=== PATIENT | female | born 1985 | race Caucasian/White ===

== ENCOUNTER 2020-03-11 10:09 | Emergency (ER) | payer OTHER, SELFPAY ==
--- NOTE | ~2020-03-11 | XR_ITS ---
XR foot LT min 3V 03/11/2020 10:31 INDICATION: Left ankle pain after injury PROCEDURE: 4 views left ankle COMPARISON: No prior studies for comparison. FINDINGS: Fracture, dislocation or subluxation is not identified. There is a degenerative calcaneal s pur. There is a probable old healed navicular fracture. The soft tissues appear within normal limits. No foreign bodies are identified. IMPRESSION: 1: NO ACUTE BONE OR JOINT ABNORMALITY IDENTIFIED. Reviewed, dictated and finalized at location B.
[2020-03-11 10:20] VITALS: BP 107/78; PULSE 100; RESP 16; TEMP 36.2; O2SAT 98
--- NOTE | 2020-03-11 10:46 | ED.LOWEXIN ---
HPI - Extremity Injury (Lower) General Chief Complaint: Extremity Injury, Lower Stated Complaint: Ankle injury Time Seen by Provider: 03/11/20 10:32 Source: patient and RN notes reviewed Mode of arrival: ambulatory Limitations: no limitations History of Present Illness HPI Narrative: Patient presents today complaining of injury to her left ankle. Reports she missed several stairs while going into her basement yesterday, twisting her ankle and falling. She denies numbness or tingling in the leg or foot. Pain increases with weightbearing. Currently at rest, she currently rates her pain 4/10. She has tried ice and Aleve without much relief. Patient works at [employer] and has many stairs to climb at work. MD complaint: ankle injury Related Data Home Medications Medication Instructions Recorded Confirmed buprenorphine-naloxone [Suboxone] 1 film SUBLINGUAL DAILY 03/11/20 03/11/20 Allergies Allergy/AdvReac Type Severity Reaction Status Date / Time Penicillins Allergy Unknown Unknown Verified 03/11/20 10:15 Review of Systems Review of Systems: Narrative: CONSTITUTIONAL: Denies body aches, fever, chills, or sweats. EYES: Denies visual changes, redness, or discharge. ENT: Denies rhinorrhea, congestion, sore throat, or otalgia. CARDIOVASCULAR: Denies chest pain, palpitations, or edema. RESPIRATORY: Denies cough or dyspnea. GASTROINTESTINAL: Denies abdominal pain, nausea, vomiting, or diarrhea. GENITOURINARY: Denies dysuria or hematuria. SKIN: Denies rash, itching, or wounds. MUSCULOSKELETAL: Denies back pain, or myalgia. + Left ankle injury NEUROLOGIC: Denies headache, numbness, tingling, or weakness. PSYCH: Denies depression or anxiety. [facility] Past Medical History Medical History (Updated 03/11/20 @ 10:50 by Jillian Chapa, [facility], ) Substance abuse Social History Social History Gender identity (if verbalized by the patient): Female Comments At time of signature, I have reviewed and agree with nursing past medical, surgical, social and family history unless otherwise noted. Please see nursing chart for further information. There is no relevant family history pertinent to the presenting complaint Exam Narrative: Exam Narrative: GENERAL: Well-appearing, well-nourished, and in no acute distress. HEAD: Normocephalic, atraumatic. EYES: EOMI. No redness or drainage. Conjunctivae normal. ENT: Mucous membranes pink and moist. NECK: Normal AROM. CHEST: No respiratory distress. EXTREMITIES: Left ankle: Mild edema to the lateral malleolus with mild ecchymosis. Soft tissue tenderness laterally, but no bony tenderness to the lateral malleolus. No bony tenderness to the medial malleolus. Soft tissue tenderness to the anterior ankle. No tenderness to the foot. Distal sensation intact. Capillary refill normal. Pedal pulse normal. Full AROM of the toes and ankle. Pain increases with range of motion of the ankle. SKIN: Warm, dry, no rash. Capillary refill normal. Normal skin turgor. NEURO: No focal deficits. Alert and oriented x3. Gait steady. PSYCH: Normal affect. No signs of depression or anxiety. Course Vital Signs Vital signs: Vital Signs Temperature 97.1 F L 03/11/20 10:20 Pulse Rate 100 03/11/20 10:20 Respiratory Rate 16 03/11/20 10:20 Blood Pressure 107/78 03/11/20 10:20 Pulse Oximetry 98 03/11/20 10:20 Temperature 97.1 F L 03/11/20 10:20 Pulse Rate 100 03/11/20 10:20 Respiratory Rate 16 03/11/20 10:20 Blood Pressure 107/78 03/11/20 10:20 Pulse Oximetry 98 03/11/20 10:20 Reviewed MDM - Extremity Injury (Lower) Differential Diagnosis Differential diagnosis: Likely ankle sprain and strain and ankle fracture Imaging Data Radiologist's impression: ITS Impressions Foot X-Ray 03/11/20 10:35 IMPRESSION: 1: NO ACUTE BONE OR JOINT ABNORMALITY IDENTIFIED. Critical Care Time Critical Care Time Critical Care Time: No Discharge Plan
== END 2020-03-11 10:54 | disposition home or self-care (01) ==
PROVIDERS: Emergency Provider Nurse Practitioner
DX: S93.402A Sprain of unspecified ligament of left ankle, initial encounter (principal); W10.9XXA Fall (on) (from) unspecified stairs and steps, initial encounter; J45.909 Unspecified asthma, uncomplicated
CPT/HCPCS: 73630; 99213; G0463

== ENCOUNTER 2021-10-23 15:35 | Emergency (ER) | payer OTHER, SELFPAY ==
[2021-10-23 15:46] VITALS: BP 124/82; PULSE 91; RESP 20; TEMP 36.7; O2SAT 99
--- NOTE | 2021-10-23 16:01 | ED.WOUNDLAC ---
HPI - Wound/Laceration General Chief Complaint: Wound/Laceration Stated Complaint: Bug bite Time Seen by Provider: 10/23/21 16:01 Source: patient Mode of arrival: ambulatory Limitations: no limitations History of Present Illness HPI narrative: Judith Mendez is a 36 yo female with a PMH of opiate addiction who is on Suboxone; here with left middle finger infection on the distal joint of finger. It has developed relatively rapidly last 2 days. States it started to look like a small fonseca and erupted from there Related Data Home Medications Medication Instructions Recorded Confirmed buprenorphine-naloxone [Suboxone] 1 film SUBLINGUAL DAILY 03/11/20 03/11/20 bupropion HCl mg PO 10/23/21 Allergies Allergy/AdvReac Type Severity Reaction Status Date / Time Penicillins Allergy Unknown Unknown Verified 03/11/20 10:15 Review of Systems Review of Systems: CONSTITUTIONAL: Denies fever, chills, sweats. EYES: Denies visual changes, redness, discharge. ENT: Denies rhinorrhea, congestion, sore throat, otalgia. CARDIOVASCULAR: Denies chest pain, palpitations, edema. RESPIRATORY: Denies dyspnea, wheezing, cough GASTROINTESTINAL: Denies abdominal pain, nausea, vomiting, diarrhea. GENITOURINARY: Denies dysuria, hematuria, abnormal discharge SKIN: Denies rash or itching. Middle third finger infection of the distal joint NEUROLOGIC: Denies numbness, or focal weakness. PSYCHIATRIC: Denies anxiety or depression. PMF[facility] Past Medical History Medical History Substance abuse Tobacco abuse Social History Social History (Updated 10/23/21 @ 16:21 by Marleny Puga CNP) Smoking packs per day: 0.25 Smoking cigarettes per day: 5.0 Years smoked: 20 Smoking pack-years: 5.00 Smoking status: Current every day smoker Tobacco type: cigarettes Alcohol intake: never Gender identity (if verbalized by the patient): Female Comments At time of signature, I agree with nursing past medical, surgical, social and family history. There is no relevant family history pertinent to the presenting complaint. Exam Narrative: GENERAL: This is a well-nourished, well-developed patient, in mild distress. HEAD: normocephalic, atraumatic. EYES: Sclera clear/white. Vision is grossly intact. EARS: External ears normal, Hearing grossly intact. NOSE: External nose normal without nasal discharge, nares without redness, no rhinorrhea. THROAT: Mucous membranes moist, NECK: Neck supple, non-tender CARDIOVASCULAR: Regular rate and rhythm without murmurs, gallops, or rubs. RESPIRATORY: Clear to auscultation. Breath sounds equal bilaterally. No wheezes, rales, or rhonchi. GASTROINTESTINAL: Abdomen soft, non-tender, SKIN: warm, intact with no suspicious lesions or rash, good texture and turgor. Superficial infection on the left middle finger at the distal joint dorsal side NEURO: awake, alert, and oriented to person, place and time. There were no obvious focal neurologic abnormalities. Steady gait EXTREMITIES: Normal range of motion. BACK: Nontender without deformity Course Course Emergency Course: Patient comes with infection to third left finger at the distal joint Procedure to unroofed the lesion and drain lesion Started on Keflex and Bactrim Level of Care: Express Care Visit Vital Signs Vital signs: Vital Signs Temperature 98.1 F 10/23/21 15:46 Pulse Rate 91 10/23/21 15:46 Respiratory Rate 20 10/23/21 15:46 Blood Pressure 124/82 10/23/21 15:46 Pulse Oximetry 99 10/23/21 15:46 Temperature 98.1 F 10/23/21 15:46 Pulse Rate 91 10/23/21 15:46 Respiratory Rate 20 10/23/21 15:46 Blood Pressure 124/82 10/23/21 15:46 Pulse Oximetry 99 10/23/21 15:46 Procedures Abscess I/D hand: Date of Incision: 10/23/21 Time of Incision: 16:16 Side (if applicable): left Technique: needle aspiration Amount of fluid express
--- NOTE | 2021-10-23 16:12 | PC.NURSE ---
application administrator in to do i & d.
== END 2021-10-23 16:26 | disposition home or self-care (01) ==
PROVIDERS: Emergency Provider Nurse Practitioner; PCP Family Medicine
DX: L02.512 Cutaneous abscess of left hand (principal); F17.210 Nicotine dependence, cigarettes, uncomplicated
CPT/HCPCS: 10160; 99213; G0463

== ENCOUNTER 2022-06-14 15:04 | Emergency (ER) | payer OTHER, SELFPAY ==
[2022-06-14 15:20] VITALS: BP 118/69; PULSE 88; RESP 16; TEMP 36.3; O2SAT 100
--- NOTE | 2022-06-14 15:37 | ED.GENADULT ---
HPI - General Adult General Chief complaint: Medical Clearance Stated complaint: Vomiting Time Seen by Provider: 06/14/22 15:37 Source: patient, RN notes reviewed and old records reviewed Mode of arrival: ambulatory Limitations: no limitations History of Present Illness HPI narrative: 36-year-old female presents to the [facility] requesting a work note. Patient states that she woke up this morning had bout of diarrhea, stomach cramping and vomited 1 time. States that she took some Zofran and feels much better. Denies any abdominal pain. Denies any chest pain or shortness of breath. Denies fevers. Denies any urinary symptoms. States that she called to work and they told her that she needs a work note from a provider to return Related Data Home Medications Medication Instructions Recorded Confirmed buprenorphine 4 mg-naloxone 1 mg 1 film sublingual DAILY 03/11/20 06/14/22 sublingual film (Suboxone) bupropion HCl 150 mg 24 hr tablet, 150 mg PO DAILY 10/23/21 06/14/22 extended release mirtazapine 15 mg tablet 15 mg PO DAILY 06/14/22 06/14/22 Allergies Allergy/AdvReac Type Severity Reaction Status Date / Time Penicillins Allergy Unknown Unknown Verified 06/14/22 15:12 Review of Systems Review of Systems: All systems reviewed & are unremarkable except as noted in HPI and below Constitutional: Constitutional: Reports no additional constitutional complaints, Denies chills and Denies fever(s) Eyes: Eyes: Reports no additional eye complaints ENT: Reports system reviewed and no additional complaints, except as documented Cardiovascular: Cardiovascular: Reports no additional cardiovascular complaints Respiratory: Respiratory: Reports no additional respiratory complaints Gastrointestinal: Gastrointestinal: Reports as per HPI Musculoskeletal: Musculoskeletal: Reports no additional musculoskeletal complaints Integumentary/Breasts: Skin/Breast: Reports system reviewed and no additional complaints, except as docu Neurologic: Reports system reviewed and no additional complaints, except as documented Psychiatric: Psychiatric: Reports no additional psychiatric complaints Allergic/Immunologic: Allergic/Immunologic: Reports no additional allergic/immunologic complaints PMFSH Past Medical History Medical History Substance abuse Tobacco abuse Social History Social History Smoking packs per day: 0.25 Smoking cigarettes per day: 5.0 Years smoked: 20 Smoking pack-years: 5.00 Smoking status: Current every day smoker Tobacco type: cigarettes Alcohol intake: never Gender identity (if verbalized by the patient): Female Comments At the time of my signature, I reviewed and agree with the nursing past medical, surgical, social, and family history. There is no relevant family history pertinent to the patient complaint. Exam Const: General: healthy appearing, no acute distress, alert and well nourished Nutritional Appearance: well nourished and obese Orientation/consciousness: patient oriented x3 Limitations: no limitations HENMT: Head: normal to inspection Ears: external ears normal Eyes: General: appearance normal, both eyes and all related structures Pupils: Equal, round and reactive pupils present Neck: Neck: normal visual inspection, no lymphadenopathy and no meningeal signs Chest: Chest palpation & inspection: normal inspection of the chest Resp: Effort & Inspection: normal respiratory effort and no use of accessory muscles Auscultation: clear to auscultation bilaterally, no crackles, no rales, no rhonchi and no wheezes Cardio: Rate: regular rate Rhythm: regular rhythm GI: GI Palp: Yes Soft to palpation and No Tenderness to palpation present (GI) Back/Spine/Pelvis: Cervical Spine: normal cervical lordosis Thoracic/Lumbar Spine: thoracic and lumbar spine normal to inspection Ski
== END 2022-06-14 15:46 | disposition home or self-care (01) ==
PROVIDERS: Emergency Provider Nurse Practitioner; PCP Internal Medicine
DX: R11.2 Nausea with vomiting, unspecified (principal); R19.7 Diarrhea, unspecified; Z87.891 Personal history of nicotine dependence
CPT/HCPCS: 99213; G0463

== ENCOUNTER 2023-03-07 16:54 | Emergency (ER) | payer OTHER, SELFPAY ==
--- NOTE | ~2023-03-07 | XR_ITS ---
EXAMINATION: XR ankle LT min 3V DATE: 03/07/2023 17:47 INDICATION: Left ankle injury and pain and swelling. TECHNIQUE: 4 views of left ankle were obtained. COMPARISON: Left ankle radiograph 03/11/2020 FINDINGS: Bone alignment is normal. No fracture. 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 There is mild osteoarthritis of talonavicular joint. There are enthesophytes at th e posterior and plantar aspects of calcaneal tuberosity. Ankle soft tissue tissue swelling is noted. IMPRESSION: 1. No acute fracture. Reviewed, dictated and finalized at location E. IMPRESSION: 1. No acute fracture.
[2023-03-07 17:24] VITALS: BP 138/93; PULSE 82; RESP 16; TEMP 36.1; O2SAT 100
--- NOTE | 2023-03-07 18:10 | ED.LOWEXIN ---
HPI - Extremity Injury (Lower) General Chief Complaint: Extremity Injury, Lower Stated Complaint: injured left foot Time Seen by Provider: 03/07/23 18:04 Source: patient and RN notes reviewed Mode of arrival: ambulatory Limitations: no limitations History of Present Illness HPI Narrative: Patient presents today complaining of an injury to her left lower leg. Four days ago she tripped over a cable line in her yd that was supposed to have been buried, causing an abrasion to her anterior lower leg. This caused an abrasion and it has become very swollen and red. She also injured her ankle at that time. Denies numbness or tingling. She has tried ibuprofen, ice, and elevation without much relief. Related Data Home Medications Medication Instructions Recorded Confirmed bupropion HCl 150 mg 24 hr tablet, 150 mg PO DAILY 10/23/21 06/14/22 extended release mirtazapine 15 mg tablet 15 mg PO DAILY 06/14/22 06/14/22 hydrochlorothiazide 12.5 mg tablet mg 03/07/23 sertraline 25 mg tablet mg 03/07/23 zolpidem 10 mg tablet mg 03/07/23 Allergies Allergy/AdvReac Type Severity Reaction Status Date / Time Penicillins Allergy Unknown Unknown Verified 03/07/23 17:57 Review of Systems Review of Systems: CONSTITUTIONAL: Denies body aches, fever, chills, or sweats. EYES: Denies visual changes, redness, or discharge. ENT: Denies rhinorrhea, congestion, sore throat, or otalgia. CARDIOVASCULAR: Denies chest pain, palpitations, or edema. RESPIRATORY: Denies cough or dyspnea. GASTROINTESTINAL: Denies abdominal pain, nausea, vomiting, or diarrhea. GENITOURINARY: Denies dysuria or hematuria. SKIN: + abrasion to left lower leg MUSCULOSKELETAL: Denies back pain. + left ankle pain NEUROLOGIC: Denies headache, numbness, tingling, or weakness. PSYCH: Denies depression or anxiety. [facility] Past Medical History Medical History Substance abuse Tobacco abuse Social History Social History Smoking packs per day: 0.25 Smoking cigarettes per day: 5.0 Years smoked: 20 Smoking pack-years: 5.00 Smoking status: Current every day smoker Tobacco type: cigarettes Alcohol intake: never Gender identity (if verbalized by the patient): Female Comments At time of signature, I have reviewed and agree with nursing past medical, surgical, social and family history unless otherwise noted. Please see nursing chart for further information. There is no relevant family history pertinent to the presenting complaint Exam Narrative: GENERAL: Well-appearing, well-nourished, and in no acute distress. HEAD: Normocephalic, atraumatic. EYES: EOMI. No redness or drainage. Conjunctivae normal. ENT: Mucous membranes pink and moist. NECK: Normal AROM. CHEST: No respiratory distress. EXTREMITIES: Left lower leg: Approximately 3 x 2 cm superficial abrasion to the anterior leg surrounded by some [id number] erythema and edema. The ankle is mildly edematous with tenderness to the medial and lateral malleolus. No tenderness to the foot. Distal sensation intact. Capillary refill normal. Pedal pulse normal. Full range of motion of the toes. Full range of motion of the ankle with increased pain. SKIN: Warm, dry, no rash. Capillary refill normal. Normal skin turgor. NEURO: No focal deficits. Alert and oriented x3. Gait steady. PSYCH: Normal affect. No signs of depression or anxiety. Course Course Level of Care: Express Care Visit Vital Signs Vital signs: Vital Signs Temperature 96.9 F L 03/07/23 17:24 Pulse Rate 82 03/07/23 17:24 Respiratory Rate 16 03/07/23 17:24 Blood Pressure 138/93 H 03/07/23 17:24 Pulse Oximetry 100 03/07/23 17:24 Oxygen Delivery Room Air 03/07/23 17:24 Temperature 96.9 F L 03/07/23 17:24 Pulse Rate 82 03/07/23 17:24 Respiratory Rate 16 03/07/23 17:24 Bl
[2023-03-07] MEDS: TETANUS,DIPHTHERIA,AC PERTUSSIS ADULT (0.5 ML) BOOSTRIX IM (18:21)
== END 2023-03-07 18:42 | disposition home or self-care (01) ==
PROVIDERS: Emergency Provider Nurse Practitioner; PCP Internal Medicine
DX: L03.116 Cellulitis of left lower limb (principal); S93.402A Sprain of unspecified ligament of left ankle, initial encounter; W22.8XXA Striking against or struck by other objects, initial encounter; Z23 Encounter for immunization; F17.210 Nicotine dependence, cigarettes, uncomplicated; J45.909 Unspecified asthma, uncomplicated
CPT/HCPCS: 73610; 90471; 90715; 99213; G0463

== ENCOUNTER → 2023-03-09 15:45 | Outpatient (CLI) | payer OTHER, SELFPAY ==
--- NOTE | ~2023-03-09 | XR_ITS ---
EXAMINATION: XR tibia fibula LT 2V DATE: 03/09/2023 16:07 INDICATION: Left lower leg injury. Left ankle pain. TECHNIQUE: 2 views of left tibia and fibula were obtained. COMPARISON: Left ankle radiographs 03/07/2023 FINDINGS: Bone alignment is normal. No fracture. 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 Joint spaces are normal. There are enthesophytes at the posterior and plantar aspe cts of calcaneal tuberosity. No knee joint effusion. IMPRESSION: 1. No fracture. Reviewed, dictated and finalized at location E. IMPRESSION: 1. No fracture.
== END ==
PROVIDERS: PCP Nurse Practitioner Family; Visit Provider Nurse Practitioner Family
DX: M25.572 Pain in left ankle and joints of left foot (principal)
CPT/HCPCS: 73590

== ENCOUNTER 2023-04-29 19:17 | Emergency (ER) | payer OTHER, SELFPAY ==
[2023-04-29 19:26] VITALS: BP 123/74; PULSE 81; RESP 16; TEMP 36.6; O2SAT 100
[2023-04-29 19:29] VITALS: BP 123/74; PULSE 81; RESP 16; TEMP 36.6; O2SAT 100
--- NOTE | 2023-04-29 19:38 | ED.EYEPROB ---
HPI - Eye Problem General Chief complaint: Eye Problems Stated complaint: Eyes Irritation Time Seen by Provider: 04/29/23 19:32 Source: patient and RN notes reviewed Mode of arrival: ambulatory Limitations: no limitations History of Present Illness HPI Narrative: Patient presents today complaining of bilateral eye itching and grittiness since this morning. She is also complaining of some blurriness to the right eye. Patient states she believes her symptoms initially started after a cat slept just inches from her face last night and she woke up with some irritation to her right eye. She states she noted some, ?puffiness? to her right cornea. She used a Q-tip for most of the day today to, ?push the puffiness out of the white part of my eye. ? Related Data Home Medications Medication Instructions Recorded Confirmed hydrochlorothiazide 12.5 mg tablet mg 03/07/23 sertraline 25 mg tablet mg 03/07/23 zolpidem 10 mg tablet mg 03/07/23 buspirone 10 mg tablet mg 04/29/23 04/29/23 Allergies Allergy/AdvReac Type Severity Reaction Status Date / Time Penicillins Allergy Unknown Unknown Verified 04/29/23 19:27 Review of Systems Review of Systems: CONSTITUTIONAL: Denies body aches, fever, chills, or sweats. EYES: + bilateral eye itching, right eye blurriness ENT: Denies rhinorrhea, congestion, sore throat, or otalgia. CARDIOVASCULAR: Denies chest pain, palpitations, or edema. RESPIRATORY: Denies cough or dyspnea. GASTROINTESTINAL: Denies abdominal pain, nausea, vomiting, or diarrhea. GENITOURINARY: Denies dysuria or hematuria. SKIN: Denies rash, itching, or wounds. MUSCULOSKELETAL: Denies back pain, joint pain, or myalgia. NEUROLOGIC: Denies headache, numbness, tingling, or weakness. PSYCH: Denies depression or anxiety. [facility] Past Medical History Medical History Substance abuse Tobacco abuse Social History Social History Smoking packs per day: 0.25 Smoking cigarettes per day: 5.0 Years smoked: 20 Smoking pack-years: 5.00 Smoking status: Current every day smoker Tobacco type: cigarettes Alcohol intake: never Gender identity (if verbalized by the patient): Female Comments At time of signature, I have reviewed and agree with nursing past medical, surgical, social and family history unless otherwise noted. Please see nursing chart for further information. There is no relevant family history pertinent to the presenting complaint Exam Narrative: GENERAL: Well-appearing, well-nourished, and in no acute distress. HEAD: Normocephalic, atraumatic. EYES: EOMI. PERRL. Right eye with fluorescein uptake. Bilateral chemosis and injected conjunctiva. See procedure note.. ENT: Mucous membranes pink and moist. NECK: Normal AROM. CHEST: No respiratory distress. EXTREMITIES: Normal range of motion. No edema. SKIN: Warm, dry, no rash. Capillary refill normal. Normal skin turgor. NEURO: No focal deficits. Alert and oriented x3. Gait steady. PSYCH: Normal affect. No signs of depression or anxiety. Course Course Level of Care: Express Care Visit Vital Signs Vital signs: Vital Signs Temperature 97.8 F 04/29/23 19:26 Pulse Rate 81 04/29/23 19:26 Respiratory Rate 16 04/29/23 19:26 Blood Pressure 123/74 04/29/23 19:26 Pulse Oximetry 100 04/29/23 19:26 Oxygen Delivery Room Air 04/29/23 19:26 Temperature 97.8 F 04/29/23 19:29 Pulse Rate 81 04/29/23 19:29 Respiratory Rate 16 04/29/23 19:29 Blood Pressure 123/74 04/29/23 19:29 Pulse Oximetry 100 04/29/23 19:29 Oxygen Delivery Room Air 04/29/23 19:29 Reviewed. Pt has been instructed to follow up with her PCP regarding her elevated blood pressure today. Procedures Other Procedure Procedure 1: Other Procedure: Bilateral eyes were anesthetized with 1 drop of tetracaine a
== END 2023-04-29 19:57 | disposition home or self-care (01) ==
PROVIDERS: Emergency Provider Nurse Practitioner; PCP Nurse Practitioner Family
DX: H10.13 Acute atopic conjunctivitis, bilateral (principal); F17.210 Nicotine dependence, cigarettes, uncomplicated
CPT/HCPCS: 99213; A9270; G0463

== ENCOUNTER 2023-09-16 15:08 | Emergency (ER) | payer OTHER, SELFPAY ==
[2023-09-16 15:22] VITALS: BP 136/91; PULSE 97; RESP 16; TEMP 36.6; O2SAT 99
--- NOTE | 2023-09-16 15:28 | ED.DENTAL ---
HPI - Dental/Oral General Chief complaint: Dental/Oral Stated complaint: Dental Pain Time Seen by Provider: 09/16/23 15:37 Mode of arrival: ambulatory Limitations: no limitations History of Present Illness HPI Narrative: 37-year-old female presents with concern for left lower dental pain. Reports history of problems with her teeth, she currently has a broken tooth as an broken for some time that his started hurting recently. Reports she has a dentist appointment but is not until the end of August. She reports she has been taking ibuprofen without much relief. MD Complaint: tooth pain Related Data Home Medications Medication Instructions Recorded Confirmed hydrochlorothiazide 12.5 mg tablet mg 03/07/23 zolpidem 10 mg tablet mg 03/07/23 Allergies Allergy/AdvReac Type Severity Reaction Status Date / Time Penicillins Allergy Unknown Unknown Verified 09/16/23 15:46 Review of Systems Review of Systems: CONSTITUTIONAL: Denies malaise, chills, sweats, or fever. EYES: Denies visual changes ENT: Denies rhinorrhea, congestion, sinus pain, otalgia or sore throat. Reports left lower dental pain CARDIOVASCULAR: Denies chest pain, palpitations RESPIRATORY: Denies cough or dyspnea. SKIN: Denies rash or itching. MUSCULOSKELETAL: Denies myalgia. NEUROLOGIC: Denies numbness, weakness, or headache. All systems reviewed & are unremarkable except as noted in HPI and below PMFSH Past Medical History Medical History Substance abuse Tobacco abuse Social History Social History Smoking packs per day: 0.25 Smoking cigarettes per day: 5.0 Years smoked: 20 Smoking pack-years: 5.00 Smoking status: Current every day smoker Tobacco type: cigarettes Alcohol intake: never Gender identity (if verbalized by the patient): Female Comments At time of signature, agree with nursing past medical, surgical, social and family history. There is no relevant family history pertinent to the presenting complaint Exam Narrative: GENERAL: Well-appearing, well-nourished, and in no acute distress. HEAD: Normocephalic, atraumatic. EYES: PERRLA, sclera clear ENT: Nares clear, turbinates pink, no rhinorrhea or epistaxis. Mucous membranes moist. TM pearly altamirano with sharp light reflex bilaterally; no tragal tenderness. Oropharynx without erythema or lesions. Tonsils not enlarged and without exudate. Missing teeth, broken teeth, caries. No facial eyedrops swelling noted NECK: Supple. No lymphadenopathy. CHEST: No respiratory distress. Speaks in full sentences. HEART: Regular rate and rhythm. SKIN: Warm, dry, no visible rash. NEURO: Alert and oriented x3. PSYCH: Normal mood and affect Course Course Emergency Course: Patient is aware of diagnosis, understands and agrees to treatment plan. Anticipatory guidance given. Patient agrees to follow-up as directed and is aware of reasons to seek care at the emergency department. Portions of this record may have been created with voice recognition software Level of Care: Express Care Visit Vital Signs Vital signs: Vital Signs Temperature 97.8 F 09/16/23 15:22 Pulse Rate 97 09/16/23 15:22 Respiratory Rate 16 09/16/23 15:22 Blood Pressure 136/91 H 09/16/23 15:22 Pulse Oximetry 99 09/16/23 15:22 Oxygen Delivery Room Air 09/16/23 15:22 Temperature 97.8 F 09/16/23 15:22 Pulse Rate 97 09/16/23 15:22 Respiratory Rate 16 09/16/23 15:22 Blood Pressure 136/91 H 09/16/23 15:22 Pulse Oximetry 99 09/16/23 15:22 Oxygen Delivery Room Air 09/16/23 15:22 Reviewed. MDM - Dental/Oral MDM Narrative Medical decision making narrative: Patients pain and complaint coupled with physical findings are consistant with dentalgia. There are no focal signs of space occupying lesions that are compromising to the airway; no dysphagia, od
== END 2023-09-16 15:50 | disposition home or self-care (01) ==
PROVIDERS: Emergency Provider Nurse Practitioner
DX: K08.89 Other specified disorders of teeth and supporting structures (principal); F17.210 Nicotine dependence, cigarettes, uncomplicated
CPT/HCPCS: 99213; G0463

== ENCOUNTER 2024-01-19 11:57 | Outpatient (CLI) | payer OTHER, SELFPAY ==
[2024-01-19 12:59] LABS: Hemoglobin A1C 4.8 % (<5.7)
[2024-01-19 13:00] LABS: Hemoglobin 14.1 g/dL (12.0-15.0); Mean Corpuscular HGB Conc 34.4 g/dl (32-36); Mean Corpuscular Hemoglobin 31.3 pg (26-34); Mean Corpuscular Volume 91.1 fl (80-100); Mean Platelet Volume 11.3 fl (7.4-10.4); Platelet Count Result 228 k/mm3 (150-375); Red Cell Distribution Width 12.5 % (11.5-14.5); White Blood Count 5.3 K/mm3 (4.5-10.0)
[2024-01-19 13:11] LABS: Alanine Aminotransferase 39 U/L (6-35); Albumin Level 4.7 g/dL (3.5-5.1); Alkaline Phosphatase 53 U/L (38-126); Anion Gap 13 mmol/L (4-12); Aspartate Amino Transferase 43 U/L (14-36); Bilirubin,Total 0.9 mg/dL (0.2-1.3); Blood Urea Nitrogen 16 mg/dL (7-17); Calcium 9.6 mg/dL (8.4-10.2); Carbon Dioxide 26 mmol/L (22-30); Chloride 101 mmol/L (98-107); Cholesterol 206 mg/dL (0-200); Estimated Glomerular Filt Rate > 60; Glucose 104 mg/dL (65-110); HDL Direct 61 mg/dL; Sodium 140 mmol/L (137-145); Triglycerides 69 mg/dL (<150)
[2024-01-19 13:14] LABS: LDL Cholesterol Direct 119 mg/dL
[2024-01-19 13:20] LABS: Potassium 2.5 mmol/L (3.4-5.0)
== END 2024-01-19 11:58 | disposition home or self-care (01) ==
LOC: ANHLAB 11:58
PROVIDERS: PCP Family Medicine; Visit Provider Family Medicine
DX: Z00.00 Encounter for general adult medical examination without abnormal findings (principal); F19.10 Other psychoactive substance abuse, uncomplicated; J45.909 Unspecified asthma, uncomplicated; F41.9 Anxiety disorder, unspecified; E66.9 Obesity, unspecified
CPT/HCPCS: 36415; 80053; 80061; 83036; 85027

== ENCOUNTER 2024-01-21 10:10 | Outpatient (CLI) | payer OTHER, SELFPAY ==
[2024-01-21 10:37] LABS: Anion Gap 8 mmol/L (4-12); Blood Urea Nitrogen 13 mg/dL (7-17); Calcium 9.2 mg/dL (8.4-10.2); Carbon Dioxide 30 mmol/L (22-30); Chloride 100 mmol/L (98-107); Estimated Glomerular Filt Rate > 60; Glucose 113 mg/dL (65-110); Potassium 3.3 mmol/L (3.4-5.0); Sodium 138 mmol/L (137-145)
[2024-01-21 10:46] LABS: NT Pro B Type Natriuretic Pept 118 pg/mL (19.9-100)
== END 2024-01-21 10:11 | disposition home or self-care (01) ==
LOC: ANHLAB 10:11
PROVIDERS: PCP Family Medicine; Visit Provider Family Medicine
DX: E87.6 Hypokalemia (principal); R60.9 Edema, unspecified
CPT/HCPCS: 36415; 80048; 83880

== ENCOUNTER 2024-03-05 14:27 | Outpatient (CLI) | payer OTHER, SELFPAY ==
[2024-03-05 15:25] LABS: Alanine Aminotransferase 40 U/L (6-35); Albumin Level 4.4 g/dL (3.5-5.1); Alkaline Phosphatase 43 U/L (38-126); Anion Gap 10 mmol/L (4-12); Aspartate Amino Transferase 44 U/L (14-36); Bilirubin,Total 0.8 mg/dL (0.2-1.3); Blood Urea Nitrogen 13 mg/dL (7-17); Calcium 9.3 mg/dL (8.4-10.2); Carbon Dioxide 29 mmol/L (22-30); Chloride 99 mmol/L (98-107); Estimated Glomerular Filt Rate > 60; Glucose 77 mg/dL (65-110); Potassium 4.2 mmol/L (3.4-5.0); Sodium 138 mmol/L (137-145)
[2024-03-06 16:03] LABS: CRP, High Sensitivity 2.4 mg/L
== END 2024-03-05 14:28 | disposition home or self-care (01) ==
LOC: ANHLAB 14:28
PROVIDERS: PCP Family Medicine; Visit Provider Family Medicine
DX: Z00.00 Encounter for general adult medical examination without abnormal findings (principal); E87.6 Hypokalemia; F41.9 Anxiety disorder, unspecified; J45.909 Unspecified asthma, uncomplicated; R74.8 Abnormal levels of other serum enzymes
CPT/HCPCS: 36415; 80053; 86141

== ENCOUNTER 2024-05-30 10:27 | Outpatient (CLI) | payer OTHER, SELFPAY ==
--- NOTE | 2024-05-30 10:38 | EST_ITS ---
Patient Info Name: Judith Salinas Age: 38 years : 1985 Gender: Female Ht: 60 in Wt: 190 lbs BSA: 1.96 m2 HR: 81 bpm BP: 122 / 83 mmHg Exam Date: 05/30/2024 11:05 AM Exam Location: [facility] Patient Status: Outpatient Admit Date: 05/30/2024 Staff Ordering Physician: Bryan Dillon DO Attending Provider: Bryan Dillon DO Exercise Technologist: Donna Chamberlain RDCS Exercise Physician: Bryan Dillon DO Exam Type: CA stress test treadmill Study Info A treadmill exercise stress test was performed. Summary 1. 1. Negative Ant exercise stress test for ischemic ST changes by ECG criteria. 2. 2. Poor functional capacity, achieving 4.7 METs of workload. 3. 3. Rapid HR response to exercise. 4. 4. Appropriate HR recovery at 1 minute post exercise. 5. 5. Hypertensive response to exercise. 6. 6. No imaging with stress testing. 7. 7. Patient informed of the above results. Protocol: Ant Stress ECG Details Stage: REST Duration (min): 2 min : 48 sec Speed (mph): 0.0 Grade (%): 0 HR (bpm): 81 SBP (mmHg): 122 DBP (mmHg): 83 METS: --- Stage: REST Duration (min): 7 min : 5 sec Speed (mph): 0.0 Grade (%): 0 HR (bpm): 97 SBP (mmHg): 122 DBP (mmHg): 83 METS: --- Stage: STAGE 1 Duration (min): 1 min : 0 sec Speed (mph): 1.7 Grade (%): 10 HR (bpm): 136 SBP (mmHg): 122 DBP (mmHg): 83 METS: --- Stage: STAGE 1 Duration (min): 2 min : 0 sec Speed (mph): 1.7 Grade (%): 10 HR (bpm): 161 SBP (mmHg): 122 DBP (mmHg): 83 METS: --- Stage: STAGE 1 Duration (min): 3 min : 0 sec Speed (mph): 1.7 Grade (%): 10 HR (bpm): 168 SBP (mmHg): 135 DBP (mmHg): 92 METS: --- Stage: RECOVERY Duration (min): 0 min : 59 sec Speed (mph): 0.0 Grade (%): 0 HR (bpm): 145 SBP (mmHg): 135 DBP (mmHg): 92 METS: --- Stage: RECOVERY Duration (min): 1 min : 59 sec Speed (mph): 0.0 Grade (%): 0 HR (bpm): 119 SBP (mmHg): 135 DBP (mmHg): 92 METS: --- Stage: RECOVERY Duration (min): 2 min : 59 sec Speed (mph): 0.0 Grade (%): 0 HR (bpm): 117 SBP (mmHg): 135 DBP (mmHg): 92 METS: --- Stage: RECOVERY Duration (min): 3 min : 31 sec Speed (mph): 0.0 Grade (%): 0 HR (bpm): 114 SBP (mmHg): 210 DBP (mmHg): 76 METS: --- Rest HR: 97 bpm Peak HR: 168 bpm Rest Sys BP: 122 mmHg Peak Sys BP: 210 mmHg Max Pred HR: 180 bpm % Max Pred HR: 93 % Target HR: 153 bpm Max RPP: 35,280 bpm*mmHg Velasquez Score: 1 BP Response: Patient exhibited a hypertensive response with stress Termination Reason: Reached target heart rate or workload Cardiac Symptoms: Shortness of breath Max ST Seg Deviation: 0.50 mm Total Time: 3 min : 1 sec Rest Ocasio BP: 83 mmHg Peak Ocasio BP: 76 mmHg Angina Score: None Total METS: 4.7 Resting ECG Sinus rhythm. Stress ECG No ST changes. Arrhythmias None. Report Signatures
[2024-05-30 11:27] LABS: Alanine Aminotransferase 36 U/L (6-35); Albumin Level 4.4 g/dL (3.5-5.1); Alkaline Phosphatase 47 U/L (38-126); Anion Gap 7 mmol/L (4-12); Aspartate Amino Transferase 44 U/L (14-36); Bilirubin,Total 0.7 mg/dL (0.2-1.3); Blood Urea Nitrogen 14 mg/dL (7-17); Calcium 9.1 mg/dL (8.4-10.2); Carbon Dioxide 26 mmol/L (22-30); Chloride 104 mmol/L (98-107); Cholesterol 170 mg/dL (0-200); Estimated Glomerular Filt Rate > 60; Glucose 95 mg/dL (65-110); HDL Direct 77 mg/dL; Potassium 3.7 mmol/L (3.4-5.0); Sodium 137 mmol/L (137-145); Triglycerides 62 mg/dL (<150)
[2024-05-30 11:38] LABS: LDL Cholesterol Direct 70 mg/dL
== END 2024-05-30 10:28 | disposition home or self-care (01) ==
LOC: ANHCARD 10:30
PROVIDERS: PCP Family Medicine; Visit Provider Internal Medicine Cardiovascular Disease
DX: R07.9 Chest pain, unspecified (principal); E78.5 Hyperlipidemia, unspecified
CPT/HCPCS: 36415; 80053; 80061; 93017

== ENCOUNTER 2024-07-06 20:09 | Emergency (ER) | payer OTHER, SELFPAY ==
--- NOTE | ~2024-07-06 | XR_ITS ---
HISTORY: fall, injury COMPARISON: None TECHNIQUE: 4 views of the left knee were performed FINDINGS: Acute fracture of the tibial plateau is identified extending into the articular surface of the tibia. A large dense suprapatellar joint effusion is identified. The infrapatellar joint space is clear. IMPRESSION: Acute fracture of the tibial plateau with a large dense suprapatellar joint effusion. Reviewed, dictated and finalized at location A. R COORDINATOR IMPRESSION: Acute fracture of the tibial plateau with a large dense suprapatellar joint eff usion.
--- NOTE | ~2024-07-06 | CT_ITS ---
EXAMINATION: CT knee LT wo con DATE: 07/06/2024 23:39 INDICATION: Left knee pain. TECHNIQUE: Computed tomography (CT) of the left knee was performed without intravenous contrast. Auto mated exposure control and iterative reconstruction technique were employed. The dose-length product was 540.29 mGy-cm. COMPARISON: Left knee radiographs 07/06/2024 FINDINGS: There is a comminuted fracture of proximal tibia with involvement of the articular surfaces of the medial and lateral tibial condyles and the intercondylar eminence. At the anterior aspect of the medial tibial condyle, there is posterior rotation of an articular surface fracture fragment with 2 mm step-off. At the posterior aspect of the lateral tibial plateau, there is 4 mm depression of th e articular surface. There is mild osteoarthrosis of the patellofemoral compartment. There is a large lipohemarthrosis. IMPRESSION: 1. Comminuted fracture of proximal tibia involving the medial and lateral tibial plateaus. 2. Mild osteoarthritis of patellofemoral compartment. 3. Large lipohemarthrosis. Reviewed, dictated and finalized at location A. CER APPRENTICE IMPRESSION: 1. Comminuted fracture of proximal tibia involving the medial and lateral tibia l plateaus. 2. Mild osteoarthritis of patellofemoral compartment. 3. Large lipohemarthrosis.
[2024-07-06 20:11] VITALS: BP 130/80; PULSE 87; RESP 16; TEMP 36.3; O2SAT 100
--- NOTE | 2024-07-06 21:03 | ED.FALL ---
HPI - Fall General Chief Complaint: Fall <Earle Berry MD - Last Filed: 07/06/24 21:05> Stated Complaint: Fell off ladder, broke knee <Earle Berry MD - Last Filed: 07/06/24 21:05> Time Seen by Provider: 07/06/24 20:31 <Earle Berry MD - Last Filed: 07/06/24 21:05> Source: patient <Earle Berry MD - Last Filed: 07/06/24 21:05> Mode of arrival: ambulatory <Earle Berry MD - Last Filed: 07/06/24 21:05> Limitations: no limitations <Earle Berry MD - Last Filed: 07/06/24 21:05> History of Present Illness HPI Narrative: 38-year-old presenting after falling off a ladder. She was a few rungs up she says. She thinks she twisted her left knee. On thinks she struck it on the ground but denies any head injury or LOC. Having lot of pain whenever moving the knee and has pain with putting pressure on it. No paresthesias. <Earle Berry MD - Last Filed: 07/06/24 21:05> Related Data Allergies/Adverse Reactions: Allergies Allergy/AdvReac Type Severity Reaction Status Date / Time codeine AdvReac Mild itching Verified 07/06/24 20:36 <Earle Berry MD - Last Filed: 07/06/24 21:05> Review of Systems Review of Systems: All systems reviewed & are unremarkable except as noted in HPI and below <Earle Berry MD - Last Filed: 07/06/24 21:05> [facility] Past Medical History Medical History: Medical History Anxiety Asthma Substance abuse Heroin. Clean for 10 years. Tobacco abuse <Earle Berry MD - Last Filed: 07/06/24 21:05> Surgical History Surgical History: Surgical History delivery delivered X3 Hx of tubal ligation Traumatic brain injury Required 2 surgeries <Earle Berry MD - Last Filed: 07/06/24 21:05> Family History Family History: Family History Father Hypertension Cerebrovascular accident Hyperlipidemia Mother Heart disease Hyperlipidemia Hypertension Sibling , Murder Hypertension Grandparent Alcoholism Diabetes mellitus <Earle Berry MD - Last Filed: 07/06/24 21:05> Social History Social History: Social History Smoking packs per day: 0.25 Smoking cigarettes per day: 5.0 Years smoked: 20 Smoking pack-years: 5.00 Smoking status: Current some day smoker Tobacco type: e-cigarettes/vaping Alcohol intake: never Substance use: never Living arrangements: with family Occupation/Education: unemployed Gender identity (if verbalized by the patient): Female Sexual Orientation (if Verbalized by the Patient): Straight or Heterosexual <Earle Berry MD - Last Filed: 07/06/24 21:05> Exam Narrative: Constitutional: Generally well appearing, no acute distress Head: Atraumatic, no deformities. Eyes: Pupils equal, round, and reactive to light. Neck: Supple, no tracheal deviation, no JVD. ENMT: Mucous membranes moist Cardiovascular: S1, S2 auscultated. No murmurs, rubs, or gallops. No S3/S4. Normal Distal pulses. No peripheral edema. Respiratory: Lung sounds equal. No wheezes, rales, or rhonchi. Gastrointestinal: Abdomen was soft, nondistended Musculoskeletal: Normal muscle tone and bulk. No obvious deformities over extremities. Knee joint shows diffuse pain with range of motion. Diffuse tenderness but no significant swelling or deformity. No ligamentous laxity. Distally neurovascularly intact. Skin: No rashes. Neurological: Strength 5/5 in extremities. Distal sensation intact. Mental Status: Awake, alert and oriented x3. Follows commands <Earle Berry MD - Last Filed: 07/06/24 21:05> Course Course Emergency Course: 22:30 - This patient was signed out to me by previous ED physician, Dr. Berry pending imaging findings. 01:15 - STAT Rad interpretation of CT left knee demonstrates tibial plateau fracture consisting of the fracture through the tibial spine creating a 1.8 cm diameter fragment displaced 2 mm superiorly. There is also a approximately the 1.6 cm segment of the posterior lateral tibial plateau which is fractured and depressed 3 mm. The patient's exam is not concerning for neurovascular deficit. Will discharge with a knee mobilizer pain medications and orthopedic surgery referral. I discussed the findings and recommendations with the patient. Discussed return and emergency precautions including signs/symptoms of septic arthritis and neurovascular compromise. The patient voiced understanding and agreement with the plan. All questions answered to her satisfaction. <Eddie Sawyer MD - Last Filed: 07/07/24 01:36> Vital Signs Vital signs: Vital Signs Temperature 97.3 F L 07/06/24 20:11 Pulse Rate 87 07/06/24 20:11 Respiratory Rate 16 07/06/24 20:11 Blood Pressure 130/80 07/06/24 20:11 Pulse Oximetry 100 07/06/24 20:11 Oxygen Delivery Room Air 07/06/24 20:11 Temperature 97.3 F L 07/06/24 20:11 Pulse Rate 76 07/07/24 01:30 Respiratory Rate 15 07/07/24 01:30 Blood Pressure 128/72 07/07/24 01:30 Pulse Oximetry 98 07/07/24 01:30 Oxygen Delivery Room Air 07/06/24 20:11 <Earle Berry MD - Last Filed: 07/06/24 21:05> Vital Signs Temperature 97.3 F L 07/06/24 20:11 Pulse Rate 87 07/06/24 20:11 Respiratory Rate 16 07/06/24 20:11 Blood Pressure 130/80 07/06/24 20:11 Pulse Oximetry 100 07/06/24 20:11 Oxygen Delivery Room Air 07/06/24 20:11 Temperature 97.3 F L 07/06/24 20:11 Pulse Rate 76 07/07/24 01:30 Respiratory Rate 15 07/07/24 01:30 Blood Pressure 128/72 07/07/24 01:30 Pulse Oximetry 98 07/07/24 01:30 Oxygen Delivery Room Air 07/06/24 20:11 <Eddie Sawyer MD - Last Filed: 07/07/24 01:36> MDM - Fall MDM Narrative Medical decision making narrative: 38-year-old female here with fall off ladder, accidental trip and fall, she was a few rungs up. No head injury or LOC. Only injury is her left knee. Exam shows no deformity and she is neurovascularly intact, has lot of pain with range of motion. Suspect likely soft tissue injury, obtaining x-ray for fracture. She has good distal pulses. <Earle Berry MD - Last Filed: 07/06/24 21:05> Discharge Plan Discharge Clinical Impression: Acute pain of left knee Closed fracture of left tibial plateau Qualifiers: Encounter type: initial encounter Qualified Code(s): S82.142A - Displaced bicondylar fracture of left tibia, initial encounter for closed fracture <Earle Berry MD - Last Filed: 07/06/24 21:05> Patient Disposition: Home, Self-Care <Earle Berry MD - Last Filed: 07/06/24 21:05> Condition: Stable <Earle Berry MD - Last Filed: 07/06/24 21:05> Instructions: Antibiotic Form, Leg Fracture (ED) <Earle Berry MD - Last Filed: 07/06/24 21:05> Additional Instructions: You were seen in the emergency department. Your x-ray and CT shows changes consistent with a non displaced tibial plateau fracture. I recommend a knee immobilizer, pain medications and follow-up with an orthopedic surgeon. If you develop worsening pain with rapidly spreading redness and fevers, the leg appears blue/cold, or if you have other emergent concerns for life, limb, or eyesight, return to the emergency department. <Earle Berry MD - Last Filed: 07/06/24 21:05> Patient Language: Divehi <Earle Berry MD - Last Filed: 07/06/24 21:05> Prescriptions: New naproxen 500 mg tablet 500 mg PO BID PRN (Reason: pain) Qty: 20 0RF hydrocodone-acetaminophen 5-325 mg tablet 1 tablet PO Q8H PRN (Reason: pain) Qty: 15 0RF No Action escitalopram oxalate [Lexapro] 20 mg tablet 20 mg PO DAILY Qty: 90 1RF albuterol sulfate 90 mcg/actuation HFA aerosol inhaler 1 inh inhalation Q4H PRN (Reason: shortness of breath or wheezing) Qty: 8.5 5RF ibuprofen 800 mg tablet 800 mg PO TID PRN (Reason: pain) Qty: 90 0RF alprazolam 1 mg tablet 1 mg PO BID PRN (Reason: sleep) Qty: 60 0RF pravastatin 10 mg tablet 10 mg PO DAILY Qty: 90 2RF <Earle Berry MD - Last Filed: 07/06/24 21:05> Follow-up/Referrals: Alvaro Parker MD [Physician] - 1 Week Boston Brown MD [Primary Care Provider] - 2 Weeks <Earle Berry MD - Last Filed: 07/06/24 21:05> Time of Disposition: 01:15 <Earle Berry MD - Last Filed: 07/06/24 21:05> 01:15 <Eddie Sawyer MD - Last Filed: 07/07/24 01:36> Sign Out Sign Out Data: Patient Sign Out occurred on 07/06/24 at 22:21. Patient's care was discussed, and care was transferred from Earle Berry MD to Eddie Sawyer MD. <Earle Berry MD - Last Filed: 07/06/24 21:05>
[2024-07-06] MEDS: HYDROcodone/acetaminophen (*CRX) 5-325 MG TABLET 1 TAB PO (21:12)
[2024-07-06] MEDS: KETOROLAC 30 MG/ML VIAL (*BKC) IM (21:12)
[2024-07-07 00:12] VITALS: BP 126/86; PULSE 88; RESP 18; O2SAT 100
[2024-07-07] MEDS: oxyCODONE/ACETAMINOPHEN (*CRX) 5-325 MG TABLET 1 TABLET PO (01:21)
[2024-07-07 01:30] VITALS: BP 128/72; PULSE 76; RESP 15; O2SAT 98
== END 2024-07-07 01:31 | disposition home or self-care (01) ==
PROVIDERS: Emergency Provider Preventive Medicine Aerospace Medicine; PCP Family Medicine
DX: S82.142A Displaced bicondylar fracture of left tibia, initial encounter for closed fracture (principal); W11.XXXA Fall on and from ladder, initial encounter; F17.290 Nicotine dependence, other tobacco product, uncomplicated
CPT/HCPCS: 73564; 73700; 96372; 99284; A9270; J1885

== ENCOUNTER 2024-07-09 12:44 | Outpatient (CLI) | payer OTHER, SELFPAY ==
--- NOTE | ~2024-07-09 | XR_ITS ---
XR knee LT min 4V Ordering provider: Boston Brown MD History: . S82.002A - Unspecified fracture of left patella, initial ... . Comparison: July 06, 2024 FINDINGS: BONES: Fracture in the area of the spinous process of the tibia with lucency in the area around the t he tibial spines involving lateral tibial plateau. JOINT SPACES: Normal. SOFT TISSUES: Fusion the suprapatellar bursa. IMPRESSION: Fracture in the area of the tibial spines unchanged from previous examination. Reviewed, dictated and finalized at location A. Y GLAZER
--- NOTE | ~2024-07-09 | XR_ITS ---
XR tibia fibula LT 2V Ordering provider: Boston Brown MD History: . M79.032 - Pain in unspecified lower leg . Comparison: None. FINDINGS: BONES: Fracture in the area of the tibial spines. Small bony fragment seen near to the fibula and adjacent to the navicular bone most likely sesamoid b ones or old infarctions are not excluded. JOINT SPACES: Normal. SOFT TISSUES: Normal. IMPRESSION: Fracture in the area of the tibial spines. No other fractures seen. Reviewed, dictated and finalized at location A. DEVELOPER
== END 2024-07-09 12:45 | disposition home or self-care (01) ==
LOC: ANHIMG 12:45
PROVIDERS: PCP Family Medicine; Visit Provider Family Medicine
DX: S82.002A Unspecified fracture of left patella, initial encounter for closed fracture (principal); X58.XXXA Exposure to other specified factors, initial encounter
CPT/HCPCS: 73564; 73590

== ENCOUNTER 2024-07-30 13:28 | Emergency (ER) | payer OTHER, SELFPAY ==
[2024-07-30 13:36] VITALS: BP 122/86; PULSE 94; RESP 19; TEMP 36.6; O2SAT 99
--- NOTE | 2024-07-30 13:37 | ED_ITS ---
HPI - URI/Sore Throat General Chief Complaint: Ear Stated Complaint: Right Ear Irritation Time Seen by Provider: 07/30/24 13:44 Source: patient, RN notes reviewed and old records reviewed Mode of arrival: ambulatory Limitations: no limitations History of Present Illness HPI Narrative: 38-year-old female presents to the [facility] with complaints of right ear irritation. Reports drainage yesterday. Symptoms for 2-3 days. Onset (ago): day(s) (2-3) Related Data Allergies Allergy/AdvReac Type Severity Reaction Status Date / Time codeine AdvReac Mild itching Verified 07/17/24 07:03 Review of Systems Review of Systems: All systems reviewed & are unremarkable except as noted in HPI and below Constitutional: Constitutional: Reports no additional constitutional complaints ENT: Reports as per HPI and Reports otalgia Cardiovascular: Cardiovascular: Reports no additional cardiovascular complaints, Denies chest pain and Denies dyspnea Respiratory: Respiratory: Reports no additional respiratory complaints, Denies chest congestion, Denies cough and Denies dyspnea Gastrointestinal: Gastrointestinal: Reports no additional gastrointestinal complaints, Denies abdominal pain, Denies nausea and Denies vomiting Musculoskeletal: Musculoskeletal: Reports no additional musculoskeletal complaints Integumentary/Breasts: Skin/Breast: Reports system reviewed and no additional complaints, except as docu PMFSH Past Medical History Medical History Anxiety Asthma Left patella fracture Substance abuse Heroin. Clean for 10 years. Tobacco abuse Surgical History Surgical History delivery delivered X3 Hx of tubal ligation Traumatic brain injury Required 2 surgeries Family History Family History Father Hypertension Cerebrovascular accident Hyperlipidemia Mother Heart disease Hyperlipidemia Hypertension Sibling , Murder Hypertension Grandparent Alcoholism Diabetes mellitus Social History Social History Smoking packs per day: 0.25 Smoking cigarettes per day: 5.0 Years smoked: 20 Smoking pack-years: 5.00 Smoking status: Current some day smoker Tobacco type: e-cigarettes/vaping Alcohol intake: never Substance use: never Living arrangements: with family Occupation/Education: unemployed Gender identity (if verbalized by the patient): Female Sexual Orientation (if Verbalized by the Patient): Straight or Heterosexual Comments At the time of my signature, I reviewed and agree with the nursing past medical, surgical, social, and family history. There is no relevant family history pertinent to the patient complaint. Exam Const: General: cooperative, healthy appearing, comfortable, no acute distress, well developed, alert and well nourished Nutritional Appearance: well nourished and obese Orientation/consciousness: patient oriented x3 Limitations: no limitations HENMT: Head: normal to inspection Ears: hearing grossly normal bilaterally, external ears normal, TM's normal bilaterally, mastoids normal, no periauricular adenopathy and Abnormal EAC present erythema on the right, edema and EAC tenderness on the right; no foreign body and no otic discharge Face/Nose/Sinus: Normal external nose present, normal facial exam and face symmetric Face and sinus: normal facial exam and face symmetric Mouth: Yes Normal oral and palatal mucosa present, Yes lip normal and Yes tongue normal Eyes: General: appearance normal, both eyes and all related structures Alignment and Position: alignment normal Periorbital: periorbital findings normal Neck: Neck: normal visual inspection, full ROM, no lymphadenopathy and no meningeal signs Chest: Chest palpation & inspection: normal inspection of the chest Resp: Effort & Inspection: normal respiratory effort and able to speak in complete sentences Auscultation: clear to auscultation bilaterally, no crackles, no rales, no rhonchi and no wheezes Cardio: Rate: regular rate Skin: General skin exam: normal color and no rashes or lesions noted Lesions: no lesions Rashes: no rashes Wounds: no wounds Neuro: General: patient oriented x3, gait normal, tone normal, moves all extremities and no meningeal signs Cognition (Neuro): normal cognition Speech: normal speech Gait exam (Neuro): Normal gait present Extrem: General: normal to inspection, full ROM, capillary refill normal and normal gait Psych: Appearance: grossly normal and well kempt Mental Status: mental sta tus grossly normal Speech and movement: Normal speech and movement present and Clear speech present Affect: normal affect Attitude: cooperative Course Course Level of Care: Express Care Visit Vital Signs Vital signs: Vital Signs Temperature 97.8 F 07/30/24 13:36 Pulse Rate 94 07/30/24 13:36 Respiratory Rate 19 07/30/24 13:36 Blood Pressure 122/86 07/30/24 13:36 Pulse Oximetry 99 07/30/24 13:36 Oxygen Delivery Room Air 07/30/24 13:36 Temperature 97.8 F 07/30/24 13:36 Pulse Rate 94 07/30/24 13:36 Respiratory Rate 19 07/30/24 13:36 Blood Pressure 122/86 07/30/24 13:36 Pulse Oximetry 99 07/30/24 13:36 Oxygen Delivery Room Air 07/30/24 13:36 Reviewed MDM - URI/Sore Throat MDM Narrative Medical decision making narrative: Patient sitting in exam room. Nontoxic, vitals are stable. Patient presents with right ear pain for 2 to 3 days Erythema, edema noted to the ear canal. Small portion of the TM is seen on the right, no erythema to the TM. Patient appropriate for outpatient treatment of otitis externa with close follow-up. Discharge instructions reviewed with patient, as well as provided in writing per nursing staff. The instructions also include specific and strict return/GO TO THE ER as well as f/u information. All questions have been answered, and the patient deny any further questions with discharge and discharge plan. Some parts of this dictation were generated by voice recognition software and may contain typographical and/or grammatical inaccuracies. Differential Diagnosis Differential diagnosis: Likely upper respiratory infection, otitis media, sinusitis, viral infection and other (Serous otitis, otitis externa) Critical Care Time Critical Care Time Critical Care Time: No Discharge Plan Discharge Clinical Impression: Acute otitis externa of right ear Patient Disposition: Home, Self-Care Condition: Stable Instructions: Antibiotic Form, Swimmer's Ear (ED), Earache (ED) Additional Instructions: Do not put anything in your ears Use Flonase twice daily Follow-up with primary care provider this week For new or worsening symptoms go directly to the emergency room Patient Language: New Zealander Prescriptions: New amoxicillin-pot clavulanate 875-125 mg tablet 1 tablet PO Q12H Qty: 20 0RF ciprofloxacin HCl 0.3 % drops See Rx Instructions .Route .COMPLEX Qty: 2.5 0RF Rx Instructions: Place 5 drops in right ear twice daily for 7 days No Action escitalopram oxalate [Lexapro] 20 mg tablet 20 mg PO DAILY Qty: 90 1RF albuterol sulfate 90 mcg/actuation HFA aerosol inhaler 1 inh inhalation Q4H PRN (Reason: shortness of breath or wheezing) Qty: 8.5 5RF pravastatin 10 mg tablet 10 mg PO DAILY Qty: 90 2RF ibuprofen 800 mg tablet 800 mg PO TID PRN (Reason: pain) Qty: 90 0RF alprazolam 1 mg tablet 1 mg PO BID PRN (Reason: sleep) Qty: 60 0RF Follow-up/Referrals: Boston Brown MD [Primary Care Provider] - 1 Week ([facility] care follow up) Stand Alone Forms: Work/School Release IP Time of Disposition: 13:55
== END 2024-07-30 14:02 | disposition home or self-care (01) ==
PROVIDERS: Emergency Provider Nurse Practitioner; PCP Family Medicine
DX: H60.91 Unspecified otitis externa, right ear (principal); F17.290 Nicotine dependence, other tobacco product, uncomplicated; J45.909 Unspecified asthma, uncomplicated
CPT/HCPCS: 99213; G0463

== ENCOUNTER 2024-12-10 14:40 | Outpatient (CLI) | payer OTHER, SELFPAY ==
[2024-12-10 16:10] LABS: Hematocrit 37.2 % (37.0-47.0); Hemoglobin 12.3 g/dL (12.0-15.0); Mean Corpuscular HGB Conc 33.1 g/dl (32-36); Mean Corpuscular Hemoglobin 29.5 pg (26-34); Mean Corpuscular Volume 89.2 fl (80-100); Platelet Count Result 187 k/mm3 (150-375); Red Blood Count 4.17 M/mm3 (4.2-5.4); Red Cell Distribution Width 12.6 % (11.5-14.5)
[2024-12-10 16:18] LABS: Alanine Aminotransferase 14 U/L (6-35); Albumin Level 4.2 g/dL (3.5-5.1); Alkaline Phosphatase 47 U/L (38-126); Anion Gap 9 mmol/L (4-12); Aspartate Amino Transferase 23 U/L (14-36); Bilirubin,Total 0.6 mg/dL (0.2-1.3); Blood Urea Nitrogen 16 mg/dL (7-17); Calcium 9.3 mg/dL (8.4-10.2); Carbon Dioxide 28 mmol/L (22-30); Chloride 99 mmol/L (98-107); Estimated Glomerular Filt Rate > 60; Glucose 94 mg/dL (65-110); Potassium 3.4 mmol/L (3.4-5.0); Sodium 136 mmol/L (137-145)
[2024-12-10 16:23] LABS: Iron 86 ug/dL (37-170)
--- OUTSIDE RECORDS SUMMARY | 2024-12-10 16:30 | XMS_ITS | Clinical Summary ---
Author Organization [facility] Address [address] [place] [address] Care Team Providers Care Roll Plugger Machine Operator Name Role Phone Unavailable Primary Care Provider Unavailabl e Social History Tobacco Use Types Packs/Day Years Used Date Smoking Tobacco: Never Assessed Comments Unknown Sex and Gender Information Value Date Recorded Sex Assigned at Not on file Legal Sex Female 6:28 PM CDT Gender Identity Not on file Sexual Orientation Not on file Plan of Treatment Health Maintenance Due Date Last Done Comments Cervical Cancer Screening Pa p Smear (Age 30 to 64) Every 3 Years 1983 Annual Physical 1986 Hepatitis C 2001 DTaP, Tdap and Td Vaccines ( 1 - Tdap) 2002 Hepatitis B Vaccines (1 of 3 - 19+ 3-dose series) 2002 Cervical Cancer Screening Pa p with HPV Testing (Age 30 to 64) Every 5 Years 2013 Cervical Cancer Screening with HPV 2013 Mammogram Screening 2023 COVID-19 Vaccine (2023-2 5 season) 2024 HPV Vaccines Aged Out No longer eligi ble based on patient's age to complete this topic Meningococcal B Vaccine Aged Out No l onger eligible based on patient's age to complete this topic Meningococcal Vaccine Aged Out No nicolle james eligible based on patient's age to complete this topic Pneumococcal Vaccine: Pediat rics (0 to 5 Years) and At-Risk Patients (6 to 49 Years) Aged Out No longer eligible b ased on patient's age to complete this topic RSV Immunizations Under 20 Months Aged Out No longer eligible based on patient's age to complete this topic Advance Directives Documents on File Type Date Recorded Patient Motorcycle Tester Expl anation Advance Directives and Living Will 12/11/2018 12:00 AM ADVANCED DIRECTIVES
--- OUTSIDE RECORDS SUMMARY | 2024-12-10 16:30 | XMS_ITS | Referral Summary ---
Author Organization [facility] [address] [facility] Address [address] [place] [address] Care Team Providers Care Web Analytics Specialist Name Role Phone Briana Beckford NP Primary Care Provider [phone] Allergies No known active allergies Medications hydroCHLOROthiaz darlene (HYDRODIURIL) 12.5 mg tabletIndication s:Ankle edema Take 1 tablet (12.5 mg total) by mouth daily 90 tablet 3 Active buPROPion XL (WELLBUTRIN XL) 150 mg 24 hr tabletIndication s:Moderate episode of recurrent major depressive disorder (HCC) Take 1 tablet (150 mg total) by mouth daily 90 tablet 1 4 Active ibuprofen (ADVIL,MOTRIN) 800 mg tabletIndication s:Pain Take 1 tablet (800 mg total) by mouth 3 (three) times a day 90 tablet 3 4 Active zolpidem (AMBIEN) 10 mg tabletIndication s:Sleep-Onset Insomnia Take 1 tablet (10 mg total) by mouth nightly as needed for sleep 30 tablet 2 4 Active albuterol HFA (PROVENTIL HFA,VENTOLIN HFA,PROAIR HFA) 90 mcg/actuation inhalerIndicatio ns:Intermittent asthma, unspecified asthma severity, unspecified whether complicated Inhale 2 puffs every 4 (four) hours as needed for wheezing 8.5 g Active Active Problems Problem Noted Date Diagnosed Date Acute pain of left knee 06/24/2023 Left leg pain 03/09/2023 Anxiety 02/11/2023 Depression 02/11/2023 Opiate addiction 02/11/2023 Obesity (BMI 30-39.9) 02/11/2023 Assessment & Plan (09/07/2023 2:23 PM DRY HOUSE WHEELER): Discussed the patients BMI: The BMI is above average BMI management is complete. BMI follow-up includes: Nutrition Counseling and education provided Assessment & Plan (06/24/2023 1:50 PM CDT): Discussed the patients BMI: The BMI is above average BMI management is complete. BMI follow-up includes: Nutrition Counseling and education provided Assessment & Plan (02/11/2023 10:50 AM CDT): Discussed the patients BMI: The BMI is above average BMI management is complete. BMI follow-up includes: Nutrition Counseling and education provided Moderate episode of recurrent major depressive d isorder 02/11/2023 Primary insomnia 02/11/2023 Bilateral ovarian cysts 02/11/2023 Ankle edema 02/11/2023 Cigarette smoker 03/09/2021 Assessment & Plan (03/09/2021 4:39 PM CDT): Advised smoking cessation Encounter to establish care 03/09/2021 Intermittent asthma 03/09/2021 Assessment & Plan (03/09/2021 4:40 PM CDT): Advised smoking cessation Will start on proventil hfa Advised f/u in 1w if not improving, sooner if worsening Will notify of cxr results as available History of heroin abuse 03/09/2021 Assessment & Plan (03/09/2021 4:40 PM CDT): She will continue to work with suboxone specialist Resolved Problems Problem Noted Date Diagnosed Date Resolved Date Obesity, morbid, BMI 40.0-49.9 03/09/2021 03/09/2023 Assessment & Plan (03/09/2021 4:41 PM CDT): Obesity is unchanged. Discussed the patient's BMI. The BMI is above average. BMI management plan is completed. BMI Follow-up includes: nutrition counseling, exercise counseling and education provided. Will start on topamax bid for off label use for appetite suppression and also for headaches. She was advised to not stop it abruptly. We discussed at length potential SEs, and she expressed desire to initiate medication. Immunizations Immunization Administration Dates Next Due Hep A, Adult 01/02/2019 Influenza, Trivalent, Split, Preservative Free, Intradermal 07/09/2014 Influenza, Unspecified 08/29/2023(Deferr ed: Patient Refused),06/24/2023(Deferred: Patient Refused),03/09/2023(Deferred: Patient Refused),02/11/2023(Deferred: Patient Refused),08/29/2022(Deferred: Patient Refused),09/29/2021(Deferred: Patient Refused),09/29/2021(Deferred: Patient Refused) Pneumococcal Polysaccharide PPV23 07/09/2014 Tdap 03/07/2023 Social History Tobacco Use Types Packs/Day Years Used Date Smoking Tobacco: Former Cigarettes 1 15 0 08/29/2007 - 08/29/2022 Tobacco Cessation:Counseling Given: Not Answered PHQ-2 Answer Date Recorded PHQ-2 Total Score (If total score is 3 or more points, staff should administer the PHQ-9) 3 09/07/2023 Personal Safety Answer Date Recorded Getting School Help Needed Not on file 08/09 Comments Unknown Sex and Gender Information Value Date Recorded Sex Assigned at Not on file Legal Sex Female 7:16 PM DRY HOUSE WHEELER Gender Identity Female 07/18/2023 2:47 PM DRY HOUSE WHEELER Sexual Orientation Straight 07/18/2023 2: 47 PM DRY HOUSE WHEELER Last Filed Vital Signs Vital Sign Reading Time Taken Comments Blood Pressure 118/62 09/07/2023 2:18 PM DRY HOUSE WHEELER Pulse 83 09/07/2023 2:18 PM DRY HOUSE WHEELER Temperature 36.6 C (97.9 F) 09/07/2023 2:18 PM DRY HOUSE WHEELER Respiratory Rate 16 04/11/2023 1:55 PM CDT Oxygen Saturation 99% 09/07/2023 2:18 PM DRY HOUSE WHEELER Inhaled Oxygen Concentration - - Weight 78.9 kg (174 lb) 09/07/2023 2:18 PM DRY HOUSE WHEELER Height 152.4 cm (5') 09/07/2023 2:18 PM DRY HOUSE WHEELER Body Mass Index 33.98 09/07/2023 2:18 PM DRY HOUSE WHEELER Plan of Treatment Not on file Insurance [facility] Care Teams Web Analytics Specialist Relationship Specialty Start Date End Date Briana Beckford NP [address] [facility] [address] [place] [address] PCP - General Internal Medicine 02/11/23
--- OUTSIDE RECORDS SUMMARY | 2024-12-10 16:30 | XMS_ITS | Clinical Summary ---
Author Organization [facility] [address] [facility] Address [address] [place] [address] Care Team Providers Care Citizenship Teacher Name Role Phone Briana Beckford NP Primary Care Provider [phone] Allergies No known active allergies Medications hydroCHLOROthiaz [...] 02/11/2023 Assessment & Plan (09/07/2023 2:23 PM SOLE LEVELING MACHINE OPERATOR): Discussed the patients BMI: The BMI is [...] Refused) Pneumococcal Polysaccharide PPV23 07/09/2014 Tdap 03/07/2023 Surgical History Surgery Date Site/Laterality Comments SECTION BRAIN SURGERY Medical History Medical History Date Comments Anxiety Depression Opiate addiction (HCC) Family History Medical History Relation Name Comments Hyperlipidemia Father Hypertension Father Stroke Father Heart disease Mother Hyperlipidemia Mother Hypertension Mother Relation Name Status Comments Father Alive Mother Alive Social History Tobacco Use Types Packs/Day Years [...] on file Legal Sex Female 7:16 PM SOLE LEVELING MACHINE OPERATOR Gender Identity Female 07/18/2023 2:47 PM SOLE LEVELING MACHINE OPERATOR Sexual Orientation Straight 07/18/2023 2: 47 PM SOLE LEVELING MACHINE OPERATOR Obstetrics History Last Filed Vital Signs Vital Sign Reading Time Taken Comments Blood Pressure 118/62 09/07/2023 2:18 PM SOLE LEVELING MACHINE OPERATOR Pulse 83 09/07/2023 2:18 PM SOLE LEVELING MACHINE OPERATOR Temperature 36.6 C (97.9 F) 09/07/2023 2:18 PM SOLE LEVELING MACHINE OPERATOR Respiratory Rate 16 04/11/2023 1:55 PM CDT Oxygen Saturation 99% 09/07/2023 2:18 PM SOLE LEVELING MACHINE OPERATOR Inhaled Oxygen Concentration - - Weight 78.9 kg (174 lb) 09/07/2023 2:18 PM SOLE LEVELING MACHINE OPERATOR Height 152.4 cm (5') 09/07/2023 2:18 PM SOLE LEVELING MACHINE OPERATOR Body Mass Index 33.98 09/07/2023 2:18 PM SOLE LEVELING MACHINE OPERATOR Plan of Treatment Health Maintenance Due Date Last Done Comments Breast Cancer Screening-Mammogram 1983 Cervical Cancer Screening 1983 Varicella Vaccines (1 of 2 - 13+ 2-dose series) 1996 Hepatitis B Screening 2001 Regular Well Visit/Exam 18-64 2001 Pneumococcal vaccine <65 (2 of 2 - PCV) 07/09/2015 07/09/2014 Depression Screening 09/07/2024 09/07/2023, 06/24/2023, 04/11/2023, Additional history exists Influenza Vaccine (Season Ended) 2025 07/09/2014 DTaP/Tdap/Td Vaccine (2 - Td or Tdap) 03/07/2033 03/07/2023 Hepatitis C Screening Completed 06/14/2013 HPV Vaccines Aged Out No longer eligi ble based on patient's age to complete this topic Insurance [facility] Care Teams Citizenship Teacher Relationship Specialty Start Date End Date Briana Beckford NP [address] [facility] [address] [place] [address] PCP - General Internal Medicine 02/11/23
[2024-12-10 16:32] LABS: Percent Iron Saturation 26 % (20-50)
[2024-12-10 16:55] LABS: Hepatitis B Surface Antigen Negative (Negative)
[2024-12-10 17:01] LABS: HAV RESULT Negative (Negative); Hepatitis B Core IgM Result Negative (Negative)
[2024-12-10 17:15] LABS: Hepatitis C Virus Antibody Reactive (Negative)
[2024-12-12 15:24] LABS: Hepatitis C RNA, Quant PCR 8420000 IU/mL (NOT DETECTED)
== END 2024-12-10 14:41 | disposition home or self-care (01) ==
LOC: ANHLAB 14:44
PROVIDERS: PCP Family Medicine; Visit Provider Family Medicine
DX: E78.5 Hyperlipidemia, unspecified (principal); E87.6 Hypokalemia; J45.909 Unspecified asthma, uncomplicated; R60.9 Edema, unspecified; E66.9 Obesity, unspecified
CPT/HCPCS: 36415; 80053; 80074; 83540; 83550; 85027; 87522

== ENCOUNTER 2024-12-27 16:06 | Outpatient (CLI) | payer OTHER, SELFPAY ==
--- OUTSIDE RECORDS SUMMARY | 2024-12-27 16:11 | XMS_ITS | Referral Summary ---
Author Organization [facility] [address] [facility] Address [address] [place] [address] Care Team Providers Care Glass Vial Bending Conveyor Feeder Name Role Phone Briana Beckford NP Primary Care Provider [phone] Allergies No known active allergies Medications hydroCHLOROthiaz [...] 02/11/2023 Assessment & Plan (09/07/2023 2:23 PM TANKER TRUCK DRIVER): Discussed the patients BMI: The BMI is [...] on file Legal Sex Female 7:16 PM TANKER TRUCK DRIVER Gender Identity Female 07/18/2023 2:47 PM TANKER TRUCK DRIVER Sexual Orientation Straight 07/18/2023 2: 47 PM TANKER TRUCK DRIVER Last Filed Vital Signs Vital Sign Reading Time Taken Comments Blood Pressure 118/62 09/07/2023 2:18 PM TANKER TRUCK DRIVER Pulse 83 09/07/2023 2:18 PM TANKER TRUCK DRIVER Temperature 36.6 C (97.9 F) 09/07/2023 2:18 PM TANKER TRUCK DRIVER Respiratory Rate 16 04/11/2023 1:55 PM CDT Oxygen Saturation 99% 09/07/2023 2:18 PM TANKER TRUCK DRIVER Inhaled Oxygen Concentration - - Weight 78.9 kg (174 lb) 09/07/2023 2:18 PM TANKER TRUCK DRIVER Height 152.4 cm (5') 09/07/2023 2:18 PM TANKER TRUCK DRIVER Body Mass Index 33.98 09/07/2023 2:18 PM TANKER TRUCK DRIVER Plan of Treatment Not on file Insurance [facility] Care Teams Glass Vial Bending Conveyor Feeder Relationship Specialty Start Date End Date Briana Beckford NP [address] [facility] [address] [place] [address] PCP - General Internal Medicine 02/11/23
--- OUTSIDE RECORDS SUMMARY | 2024-12-27 16:11 | XMS_ITS | Clinical Summary ---
Author Organization [facility] [address] [facility] Address [address] [place] [address] Care Team Providers Care Manufacturing Team Member Name Role Phone Briana Beckford NP Primary Care Provider [phone] Allergies No known active allergies Medications hydroCHLOROthiaz [...] 02/11/2023 Assessment & Plan (09/07/2023 2:23 PM NEWS BROADCASTER): Discussed the patients BMI: The BMI is [...] on file Legal Sex Female 7:16 PM NEWS BROADCASTER Gender Identity Female 07/18/2023 2:47 PM NEWS BROADCASTER Sexual Orientation Straight 07/18/2023 2: 47 PM NEWS BROADCASTER Obstetrics History Last Filed Vital Signs Vital Sign Reading Time Taken Comments Blood Pressure 118/62 09/07/2023 2:18 PM NEWS BROADCASTER Pulse 83 09/07/2023 2:18 PM NEWS BROADCASTER Temperature 36.6 C (97.9 F) 09/07/2023 2:18 PM NEWS BROADCASTER Respiratory Rate 16 04/11/2023 1:55 PM CDT Oxygen Saturation 99% 09/07/2023 2:18 PM NEWS BROADCASTER Inhaled Oxygen Concentration - - Weight 78.9 kg (174 lb) 09/07/2023 2:18 PM NEWS BROADCASTER Height 152.4 cm (5') 09/07/2023 2:18 PM NEWS BROADCASTER Body Mass Index 33.98 09/07/2023 2:18 PM NEWS BROADCASTER Plan of Treatment Health Maintenance Due Date [...] patient's age to complete this topic Insurance [facility] Care Teams Manufacturing Team Member Relationship Specialty Start Date End Date Briana Beckford NP [address] [facility] [address] [place] [address] PCP - General Internal Medicine 02/11/23
--- OUTSIDE RECORDS SUMMARY | 2024-12-27 16:11 | XMS_ITS | Clinical Summary ---
Author Organization [facility] Address [address] [place] [address] Care Team Providers Care Career Development Director Name Role Phone Unavailable Primary Care Provider [...] Documents on File Type Date Recorded Patient Addiction Treatment Counselor Expl anation Advance Directives and Living Will 12/11/2018 12:00 AM ADVANCED DIRECTIVES
[2024-12-27 18:01] LABS: HIV 1/2 Ab P24 Ag Result Negative (Negative)
[2024-12-27 18:23] LABS: Anion Gap 12 mmol/L (4-12); Blood Urea Nitrogen 10 mg/dL (7-17); Calcium 9.4 mg/dL (8.4-10.2); Carbon Dioxide 27 mmol/L (22-30); Chloride 98 mmol/L (98-107); Estimated Glomerular Filt Rate > 60; Glucose 115 mg/dL (65-110); Potassium 3.9 mmol/L (3.4-5.0); Sodium 137 mmol/L (137-145)
[2025-01-02 01:24] LABS: HCV Genotype, LiPA 1a
== END 2024-12-27 16:07 | disposition home or self-care (01) ==
LOC: ANHLAB 16:07
PROVIDERS: PCP Family Medicine; Visit Provider Nurse Practitioner Family
DX: E87.6 Hypokalemia (principal); B19.20 Unspecified viral hepatitis C without hepatic coma
CPT/HCPCS: 36415; 80048; 86703; 87522; 87902; G0432

== ENCOUNTER 2025-02-14 09:51 | Outpatient (CLI) | payer OTHER, SELFPAY ==
--- NOTE | ~2025-02-14 | US_ITS ---
Limited Abdominal Sonogram: Real-time sonographic imaging of the right upper quadrant was performed. Clinical History: Abnormal serum enzyme levels Findings: The liver appears normal with no evidence of mass lesion or bile duct dilatation. Main por leoncio vein demonstrates normal direction of flow. The gallbladder is well distended, and appears normal with no evidence of gallstone or wall thickening. The common bile duct measures 3 mm. The visualize d pancreas, aorta, and IVC are unremarkable. Impression: No significant abnormality seen. Reviewed, dictated and finalized at location M. Impression: No significant abnormality seen.
--- OUTSIDE RECORDS SUMMARY | 2025-02-14 10:26 | XMS_ITS | Clinical Summary ---
Author Organization [facility] Address [address] [place] [address] Care Team Providers Care Chainman Name Role Phone Unavailable Primary Care Provider [...] Documents on File Type Date Recorded Patient Appointment Setter Expl anation Advance Directives and Living Will 12/11/2018 12:00 AM ADVANCED DIRECTIVES
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
== END 2025-02-14 09:52 | disposition home or self-care (01) ==
PROVIDERS: PCP Family Medicine; Visit Provider Nurse Practitioner Family
DX: R74.8 Abnormal levels of other serum enzymes (principal)
CPT/HCPCS: 76705

== ENCOUNTER 2025-07-02 12:11 | Outpatient (CLI) | payer OTHER, SELFPAY ==
--- OUTSIDE RECORDS SUMMARY | 2025-07-02 14:08 | XMS_ITS | Clinical Summary ---
Author Organization [facility] Address [address] [place] [address] Care Team Providers Care Gaggerman Name Role Phone Briana Beckford NP Primary Care Provider [phone] Allergies No known active allergies Medications hydroCHLOROthiaz [...] 02/11/2023 Assessment & Plan (09/07/2023 2:23 PM GRADALL OPERATOR): Discussed the patients BMI: The BMI [...] History Date Comments Anxiety Depression Opiate addiction Family History Medical History Relation Name Comments [...] on file Legal Sex Female 7:16 PM GRADALL OPERATOR Gender Identity Female 07/18/2023 2:47 PM GRADALL OPERATOR Sexual Orientation Straight 07/18/2023 2: 47 PM GRADALL OPERATOR Last Filed Vital Signs Vital Sign Reading Time Taken Comments Blood Pressure 118/62 09/07/2023 2:18 PM GRADALL OPERATOR Pulse 83 09/07/2023 2:18 PM GRADALL OPERATOR Temperature 36.6 C (97.9 F) 09/07/2023 2:18 PM GRADALL OPERATOR Respiratory Rate 16 04/11/2023 1:55 PM CDT Oxygen Saturation 99% 09/07/2023 2:18 PM GRADALL OPERATOR Inhaled Oxygen Concentration - - Weight 78.9 kg (174 lb) 09/07/2023 2:18 PM GRADALL OPERATOR Height 152.4 cm (5') 09/07/2023 2:18 PM GRADALL OPERATOR Body Mass Index 33.98 09/07/2023 2:18 PM GRADALL OPERATOR Plan of Treatment Health Maintenance Due Date Last Done Comments Breast Cancer Screening-Mammogram 1983 Cervical Cancer Screening 1983 Varicella Vaccines (1 of 2 - 13+ 2-dose series) 1996 Hepatitis B Screening 2001 Regular Well Visit/Exam 18-64 2001 HPV Vaccines (1 - 3-dose SCD M series) 2010 Pneumococcal vaccine <65 (2 of 2 - PCV) 07/09/2015 07/09/2014 Depression Screening 09/07/2024 09/07/2023, 06/24/2023, 04/11/2023, Additional history exists Influenza Vaccine (#1) 2025 07/09/2014 DTaP/Tdap/Td Vaccine (2 - Td or Tdap) 03/07/2033 03/07/2023 Hepatitis C Screening Completed 06/14/2013 Insurance [facility] Care Teams Gaggerman Relationship Specialty Start Date End Date Briana Beckford NP [address] [facility] [address] [place] [address] PCP - General Internal Medicine 02/11/23
--- OUTSIDE RECORDS SUMMARY | 2025-07-02 14:08 | XMS_ITS | Clinical Summary ---
Author Organization [facility] Address [address] [place] [address] Care Team Providers Care Research Executive Name Role Phone Unavailable Primary Care Provider [...] of 3 - 19+ 3-dose series) 2002 HPV Vaccines (1 - 3-dose SCD M series) 2010 Cervical Cancer Screening Pa p with HPV Testing (Age 30 to 64) Every 5 Years 2013 Cervical Cancer Screening with HPV 2013 Mammogram Screening 2023 COVID-19 Vaccine (2024-2 6 season) 2025 Influenza Adult (#1) 2025 Hepatitis A Vaccines Aged Out No long er eligible based on patient's age to complete [...] Documents on File Type Date Recorded Patient Subassemblies Wirer Expl anation Advance Directives and Living Will 12/11/2018 12:00 AM ADVANCED DIRECTIVES
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
== END 2025-07-02 12:12 | disposition home or self-care (01) ==
PROVIDERS: PCP Family Medicine; Visit Provider Nurse Practitioner Family
DX: B19.20 Unspecified viral hepatitis C without hepatic coma (principal)
CPT/HCPCS: 36415; 86803; 87522

== ENCOUNTER 2025-08-06 16:31 | Outpatient (CLI) | payer OTHER, SELFPAY ==
--- NOTE | ~2025-08-06 | XR_ITS ---
EXAMINATION: XR shoulder LT min 2V, XR shoulder RT min 2V DATE: 08/06/2025 17:02 (accession [id number]), 08/06/2025 17:03 (accession [id number]) INDICATION: Trauma due to fall. TECHNIQUE: 3 views of right shoulder and 3 views of left shoulder were obtained. COMPARISON: None. FINDINGS: No acute fracture or dislocation at both shoulders. Degenerative arthritis of the AC joint on both sides. Soft tissues are unremarkable. IMPRESSION: 1. No acute bony lesions at both shoulders. 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 Reviewed, dictated and finalized at location T. LE SUPERVISOR IMPRESSION: 1. No acute bony lesions at both shoulders. 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
--- NOTE | ~2025-08-06 | XR_ITS ---
EXAMINATION: XR knee RT 3V, 08/06/2025 16:45 LABORER SALVAGE HISTORY: pt fell the other day COMPARISON: No comparisons available. Findings: No acute fracture or malalignment. No significant degenerative changes. Soft tissues unremarkable. Impression: No acute fracture or malalignment. Reviewed, dictated and finalized at location P. RER SALVAGE Impression: No acute fracture or malalignment.
--- NOTE | ~2025-08-06 | XR_ITS ---
EXAMINATION: XR knee LT 3V, 08/06/2025 16:45 RETAIL OFFICE ASSOCIATE HISTORY: pt fell the other day COMPARISON: No comparisons available. Findings: No acute fracture or malalignment. Moderate tricompartmental degenerative changes, small effusion Soft tissues unremarkable. Impression: No acute fracture or malalignment. Reviewed, dictated and finalized at location P. [place] OFFICE ASSOCIATE Impression: No acute fracture or malalignment.
--- OUTSIDE RECORDS SUMMARY | 2025-08-06 19:00 | XMS_ITS | Clinical Summary ---
Author Organization [facility] Address [address] [place] [address] Care Team Providers Care Automotive Project Engineer Name Role Phone Briana Beckford NP Primary Care Provider Allergies No known active allergies Medications hydroCHLOROthiaz [...] 02/11/2023 Assessment & Plan (09/07/2023 2:23 PM BEEF CATTLE SPECIALIST): Discussed the patients BMI: The BMI is [...] and she expressed desire to initiate medication. Encounters Date Type Department Care Team Description 08/06/2025 Telephone [facility] Orthopedics and Sports Medicine 4 [facility] [address] [address] Magen Jennings MD from Last 3 Months Immunizations Immunization Administration Dates Next Due Hep [...] on file Legal Sex Female 7:16 PM BEEF CATTLE SPECIALIST Gender Identity Female 07/18/2023 2:47 PM BEEF CATTLE SPECIALIST Sexual Orientation Straight 07/18/2023 2: 47 PM BEEF CATTLE SPECIALIST Last Filed Vital Signs Vital Sign Reading Time Taken Comments Blood Pressure 118/62 09/07/2023 2:18 PM BEEF CATTLE SPECIALIST Pulse 83 09/07/2023 2:18 PM BEEF CATTLE SPECIALIST Temperature 36.6 C (97.9 F) 09/07/2023 2:18 PM BEEF CATTLE SPECIALIST Respiratory Rate 16 04/11/2023 1:55 PM CDT Oxygen Saturation 99% 09/07/2023 2:18 PM BEEF CATTLE SPECIALIST Inhaled Oxygen Concentration - - Weight 78.9 kg (174 lb) 09/07/2023 2:18 PM BEEF CATTLE SPECIALIST Height 152.4 cm (5') 09/07/2023 2:18 PM BEEF CATTLE SPECIALIST Body Mass Index 33.98 09/07/2023 2:18 PM BEEF CATTLE SPECIALIST Plan of Treatment Health Maintenance Due Date [...] 03/07/2023 Hepatitis C Screening Completed 06/14/2013 Insurance [facility] Care Teams Automotive Project Engineer Relationship Specialty Start Date End Date Briana Beckford NP [address] [facility] [address] [place] [address] PCP - General Internal Medicine 02/11/23
--- OUTSIDE RECORDS SUMMARY | 2025-08-06 19:00 | XMS_ITS | Clinical Summary ---
Author Organization [facility] Address [address] [place] [address] Care Team Providers Care Flotation Tender Name Role Phone Unavailable Primary Care Provider [...] Documents on File Type Date Recorded Patient Diabetes Territory Manager Expl anation Advance Directives and Living Will 12/11/2018 12:00 AM ADVANCED DIRECTIVES
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
--- OUTSIDE RECORDS SUMMARY | 2025-08-06 19:00 | XMS_ITS | Encounter Summary ---
Author Organization [facility] Healthcare Address [address] [place] [address] Care Team Providers Care Maintenance Electrician Name Role Phone Briana Beckford NP Primary Care Provider [phone] Encounter Details Date Type Department Care Team (Late st Contact Info) Description 08/06/[address] [facility] Medical Group Orthopedics and Sports Medicine 4 [facility] [address] [place] [address] Magen Jennings MD [address] [place] [address] [address] [address] Social History Tobacco Use Types Packs/Day Years Used Date Smoking Tobacco: Former Cigarettes 1 15 0 08/29/2007 - 08/29/2022 PHQ-2 Answer Date Recorded PHQ-2 Total Score (If total score is 3 or more points, staff should administer the PHQ-9) 3 09/07/2023 Personal Safety Answer Date Recorded Getting School Help Needed Not on file 08/09 Comments Unknown Sex and Gender Information Value Date Recorded Sex Assigned at Not on file Legal Sex Female 7:16 PM WATER METER INSTALLER Gender Identity Female 07/18/2023 2:47 PM WATER METER INSTALLER Sexual Orientation Straight 07/18/2023 2: 47 PM WATER METER INSTALLER documented as of this encounter Miscellaneous Notes * Telephone Encounter - Darling Rivera - 08/06/2025 3:58 PM CST Pt is seeking a second opinion on a L knee fx from last year treated by another provider and did not heal properly. Pt is aware to have her records sent to us. Please review when received and advise. R METER INSTALLER documented in this encounter Plan of Treatment Not on file documented as of this encounter Visit Diagnoses Not on filedocumented in this encounter Care Teams Maintenance Electrician Relationship Specialty Start Date End Date Briana Beckford NP [facility] [address] [place] [address] PCP - General Internal Medicine 02/11/23 documented as of this encounter
== END 2025-08-06 16:32 | disposition home or self-care (01) ==
PROVIDERS: PCP Family Medicine; Visit Provider Family Medicine
DX: M25.561 Pain in right knee (principal); M25.562 Pain in left knee; M19.012 Primary osteoarthritis, left shoulder; M19.011 Primary osteoarthritis, right shoulder; W19.XXXA Unspecified fall, initial encounter
CPT/HCPCS: 73030; 73562

== ENCOUNTER 2025-08-14 09:05 | Outpatient (CLI) | payer OTHER, SELFPAY ==
[2025-08-14 09:29] LABS: Hematocrit 42.6 % (37.0-47.0); Hemoglobin 14.0 g/dL (12.0-15.0); Immature Granulocyte Percent A 0.3 % (0-0.5); Lymphocytes Absolute Auto 3.33 K/mm3 (0.9-3.2); Mean Corpuscular HGB Conc 32.9 g/dl (32-36); Mean Corpuscular Hemoglobin 29.8 pg (26-34); Mean Corpuscular Volume 90.6 fl (80-100); Nucleated Red Blood Cells Absolute Auto 0.000 K/mm3 (0.0-0.012); Nucleated Red Blood Cells Perc 0.0 % (0.0-0.2); Platelet Count Result 236 k/mm3 (150-375); Red Blood Count 4.70 M/mm3 (4.2-5.4); White Blood Count 9.6 K/mm3 (4.5-10.0)
[2025-08-14 10:01] LABS: Alanine Aminotransferase 17 U/L (6-35); Albumin Level 3.8 g/dL (3.5-5.1); Alkaline Phosphatase 51 U/L (38-126); Anion Gap 7 mmol/L (4-12); Aspartate Amino Transferase 19 U/L (14-36); Bilirubin,Total 0.5 mg/dL (0.2-1.3); Blood Urea Nitrogen 15 mg/dL (7-17); Calcium 8.3 mg/dL (8.4-10.2); Carbon Dioxide 26 mmol/L (22-30); Chloride 103 mmol/L (98-107); Cholesterol 170 mg/dL (0-200); Estimated Glomerular Filt Rate > 60; Glucose 82 mg/dL (65-110); HDL Direct 61 mg/dL; Potassium 3.2 mmol/L (3.4-5.0); Sodium 136 mmol/L (137-145); Total Protein 6.7 g/dL (6.3-8.2); Triglycerides 101 mg/dL (<150)
--- OUTSIDE RECORDS SUMMARY | 2025-08-14 10:01 | XMS_ITS | Encounter Summary ---
Author Organization [facility] Healthcare Address [address] [place] [address] Care Team Providers Care Hide Dyer Name Role Phone Briana Beckford NP Primary Care Provider [phone] Encounter Details Date Type Department Care Team (Late st Contact Info) Description 08/06/2025 Telephone [facility] Medical Group Orthopedics and Sports Medicine 4 [facility] [address] [place] [address] Magen Jennings MD [address] [place] [address] [address] [address] Social History Tobacco Use Types [...] on file Legal Sex Female 7:16 PM REJECT OPENER AND FILLER Gender Identity Female 07/18/2023 2:47 PM REJECT OPENER AND FILLER Sexual Orientation Straight 07/18/2023 2: 47 PM REJECT OPENER AND FILLER documented as of this encounter Miscellaneous Notes * Telephone Encounter - Darling Rivera - 08/06/2025 3:58 PM CST Pt is seeking a second opinion on a L knee fx from last year treated by another provider and did not heal properly. Pt is aware to have her records sent to us. Please review when received and advise. CT OPENER AND FILLER documented in this encounter Plan of Treatment Not on file documented as of this encounter Visit Diagnoses Not on filedocumented in this encounter Care Teams Hide Dyer Relationship Specialty Start Date End Date Briana Beckford NP [facility]5 [facility] [address] [place] [address] PCP - General Internal Medicine 02/11/23 documented as of this encounter
--- OUTSIDE RECORDS SUMMARY | 2025-08-14 10:01 | XMS_ITS | Patient Health Record ---
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 Name Role Phone Harris Solomon APRN Primary Care Provider Ailyn Calix Unavailable [phone] Reason For Referral No Information Medications Medication [...] W/U Status Risk Notes Problem Primary insomnia (1448846) Primary insomnia (F51.01) Added On:2016 Active confirmed Problem Tobacco user (327302347) Tobacco dependency (F17.200) Added On:2017 Active confirmed Problem Bipolar 1 disorder (592017435) Bipolar 1 disorder (F31.9) Added On:2016 Active confirmed Problem Elevated liver enzymes level (964780342) Elevated liver enzymes (R74.8) Added On:2016 Active confirmed Problem Genital warts (439126259) Genital warts (A63.0) Added On:2016 Active confirmed Problem Anxiety state (687731493) Anxiety disorder, unspecified type (F41.9) Added On:2017 Active confirmed Problem Uncomplicated moderate persistent asthma (114520767) Moderate persistent asthma without complication (J45.40) Added On:2016 Active confirmed Plan Of Treatment No Information Insurance Providers Payer Name Payer Address Payer Phone Subscriber Number Group Number Insured Name Patient Relationship to Insured Coverage Start Date Coverage End Date [facility] Attn Claims Department [address] [place] [address] [id number] Judith Salinas Self - patient is the [...]
--- OUTSIDE RECORDS SUMMARY | 2025-08-14 10:01 | XMS_ITS | Clinical Summary ---
Author Organization [facility] [place] [address] [facility] Address [address] [place] [address] Care Team Providers Care Keg Varnisher Name Role Phone Briana Beckford NP Primary Care Provider [phone] Allergies No known active allergies Medications hydroCHLOROthiaz [...] 02/11/2023 Assessment & Plan (09/07/2023 2:23 PM HOME HOUSEKEEPER): Discussed the patients BMI: The BMI is [...] Type Department Care Team Description 08/06/2025 Telephone [facility] Orthopedics and Sports Medicine [address] [address] [facility] [address] [address] Magen Jennings MD from Last [...] on file Legal Sex Female 7:16 PM HOME HOUSEKEEPER Gender Identity Female 07/18/2023 2:47 PM HOME HOUSEKEEPER Sexual Orientation Straight 07/18/2023 2: 47 PM HOME HOUSEKEEPER Last Filed Vital Signs Vital Sign Reading Time Taken Comments Blood Pressure 118/62 09/07/2023 2:18 PM HOME HOUSEKEEPER Pulse 83 09/07/2023 2:18 PM HOME HOUSEKEEPER Temperature 36.6 C (97.9 F) 09/07/2023 2:18 PM HOME HOUSEKEEPER Respiratory Rate 16 04/11/2023 1:55 PM CDT Oxygen Saturation 99% 09/07/2023 2:18 PM HOME HOUSEKEEPER Inhaled Oxygen Concentration - - Weight 78.9 kg (174 lb) 09/07/2023 2:18 PM HOME HOUSEKEEPER Height 152.4 cm (5') 09/07/2023 2:18 PM HOME HOUSEKEEPER Body Mass Index 33.98 09/07/2023 2:18 PM HOME HOUSEKEEPER Plan of Treatment Health Maintenance Due Date [...] 03/07/2023 Hepatitis C Screening Completed 06/14/2013 Insurance [facility] Care Teams Keg Varnisher Relationship Specialty Start Date End Date Briana Beckford NP [address] [facility] [address] [place] [address] PCP - General Internal Medicine 02/11/23
[2025-08-14 10:20] LABS: Hemoglobin A1C 5.2 % (<5.7)
[2025-08-14 10:37] LABS: Thyroid Stimulating Hormone 2.380 uIU/mL (0.465-4.680)
[2025-08-14 10:56] LABS: Vitamin B12 261.0 pg/mL (239-931)
== END 2025-08-14 09:06 | disposition home or self-care (01) ==
LOC: ANHLAB 09:08
PROVIDERS: PCP Family Medicine; Visit Provider Family Medicine
DX: Z00.00 Encounter for general adult medical examination without abnormal findings (principal); F41.9 Anxiety disorder, unspecified; J45.909 Unspecified asthma, uncomplicated; R60.9 Edema, unspecified; F19.10 Other psychoactive substance abuse, uncomplicated; E66.9 Obesity, unspecified; Z68.35 Body mass index [BMI] 35.0-35.9, adult
CPT/HCPCS: 36415; 80053; 80061; 82306; 82607; 83036; 84443; 85025